=== PATIENT | male | born 1975 | race Caucasian/White ===

== ENCOUNTER 2017-10-08 13:17 | Emergency (ER) | payer BC ==
[~2017-10-08] VITALS: Ht 170.2 cm; Wt 72.6 kg
[2017-10-08] MEDS ORDERED: NORCO 5-325 TA1 EACH PO (14:18)
[2017-10-08 14:27] VITALS: BP 138/89
== END 2017-10-08 14:28 | disposition home or self-care (01) ==
LOC: M.ERS 13:17
DX: S62.502A Fracture of unspecified phalanx of left thumb, initial encounter for closed fracture (principal); W23.0XXA Caught, crushed, jammed, or pinched between moving objects, initial encounter; Y93.89 Activity, other specified; Y92.828 Other wilderness area as the place of occurrence of the external cause; Y99.8 Other external cause status